=== PATIENT | male | born 1965 | race Asian ===

== ENCOUNTER 2019-03-17 10:49 | Emergency (ER) | payer OTHER ==
[~2019-03-17] VITALS: Ht 167.6 cm; Wt 70.3 kg
[2019-03-17 11:10] VITALS: Ht 167.6 cm; Wt 70.3 kg
[2019-03-17 14:25] VITALS: BP 134/72
== END 2019-03-17 14:25 | disposition home or self-care (01) ==
LOC: ED 10:49
DX: L02.11 Cutaneous abscess of neck (principal)
CPT/HCPCS: J2001